=== PATIENT | female | born 1980 | race Caucasian/White ===

== ENCOUNTER 2020-09-18 15:43 | Emergency (ER) | payer MEDICARE, MEDICAID ==
[2020-09-18 16:17] VITALS: BP 127/88; PULSE 102
[2020-09-18] MEDS ORDERED: Lidocaine 1% 10 ML MDV INJECT ONE (16:27)
--- NOTE | 2020-09-18 17:17 | EDM.PDOC ---
ED HPI GENERAL MEDICAL PROBLEM - General Chief Complaint: Laceration Stated Complaint: RT HAND POINTER FINGER LAC Time Seen by Provider: 09/18/20 16:07 Source of Information: Reports: Patient, RN Notes Reviewed History Limitations: Reports: No Limitations - History of Present Illness INITIAL COMMENTS - FREE TEXT/NARRATIVE: Patient is a 40-year-old female presenting to the emergency department with complaints of laceration to her right index finger. States she was opening a can and cut the tip of her finger with a lid. Last tetanus vaccination was approximately 3 years ago. Treatments REFRIGERATION LEAD: Reports: Other (see below) Other Treatments REFRIGERATION LEAD: pressure to tip Right Finger-Index Pain Score (Numeric/FACES): 3 - Related Data Allergies Allergy/AdvReac Type Severity Reaction Status Date / Time Penicillins Allergy Severe Anaphylactic Verified 09/18/20 16:10 Shock Home Meds: Home Meds Cyclobenzaprine [Flexeril] 5 mg PO TID 11/09/15 [History] FLUoxetine HCl [Fluoxetine] 40 mg PO DAILY 11/09/15 [History] Pramipexole [Mirapex] 0.125 mg PO BEDTIME 11/09/15 [History] medroxyPROGESTERone Acetate [Depo-Provera] 150 mg IM ASDIRECTED 12/05/15 [History] glipiZIDE [Glucotrol XL] 5 mg PO DAILY 09/18/20 [History] Past Medical History Gastrointestinal History: Reports: Cholelithiasis [employer] History: Reports: Dysfunctional Uterine Bleeding Musculoskeletal History: Reports: Back Pain, Chronic, Other (See Below) Other Musculoskeletal History: restless legs, hip spasms Psychiatric History: Reports: Depression Endocrine/Metabolic History: Reports: Obesity/BMI 30+ - Infectious Disease History Infectious Disease History: Reports: None - Past Surgical History HEENT Surgical History: Reports: Adenoidectomy, Tonsillectomy GI Surgical History: Reports: Cholecystectomy Female Surgical History: Reports: D&C, Hysterectomy, Other (See Below) Other Female Surgeries/Procedures: cervical biopsy Social & Family History - Family History Family Medical History: No Pertinent Family History - Tobacco Use Tobacco Use Status *Q: Never Tobacco User - Caffeine Use Caffeine Use: Reports: Soda - Recreational Drug Use Recreational Drug Use: No ED ROS GENERAL - Review of Systems Review Of Systems: Comprehensive ROS is negative, except as noted in HPI. ED EXAM, SKIN/RASH Exam: See Below Exam Limited By: No Limitations General Appearance: Alert, WD/WN, No Apparent Distress Respiratory/Chest: No Respiratory Distress, Lungs Clear, Normal Breath Sounds, No Accessory Muscle Use, Chest Non-Tender Cardiovascular: Normal Peripheral Pulses, Regular Rate, Rhythm, No Edema, No Gallop, No JVD, No Murmur, No Rub Extremities: Other (1.5 cm slightly gaping laceration to the tip of the right index finger. Small amount of active bleeding. No nail involvement.) Neurological: Alert, Oriented, CN II-XII Intact, Normal Cognition, Normal Gait, Normal Reflexes, No Motor/Sensory Deficits Psychiatric: Normal Affect, Normal Mood ED SKIN PROCEDURES - Laceration/Wound Repair Right Distal Digit - 2nd (Index) Appearance: Subcutaneous, Clean Anesthetic Type: Local Local Anesthesia - Lidocaine (Xylocaine): 1% Plain Local Anesthetic Volume: 1cc Skin Prep: Providone-Iodine (Betadine), Saline, Sterile Drape Exploration/Debridement/Repair: Wound Explored, In a Bloodless Field, No Foreign Material Found Closed with: Sutures Lac/Wound length In cm: 1.5 Suture Size: 4-0 # of Sutures: 4 Suture Type: Nylon Sterile Dressing Applied: Nurse Tetanus Status Addressed: Yes Complications: No Course - Vital Signs Last Recorded V/S: Last Vital Signs Temp 98.3 F 09/18/20 16:15 Pulse 102 H 09/18/20 16:15 Resp 20 09/18/20 16:15 BP 127/88 09/18/20 16:15 Pulse Ox 97 09/18/20 16:15 - Orders/Labs/Meds Meds: Medications Discontinued Medications Generic Name Dose Route Start Last Admin Trade Name Bernice PRN Reason Stop Dose Admin Lidocaine HCl 10 ml 09/18/20 16:27 09/18/20 16:38 Lidocaine 1% 10 Ml Mdv INJECT 09/18/20 16:28 10 ml ONETIME ONE Administration Departure - Departure Time of Disposition: 17:15 Disposition: Home, Self-Care 01 Condition: Good Clinical Impression: Laceration - Discharge Information *PRESCRIPTION DRUG MONITORING PROGRAM REVIEWED*: No *COPY OF PRESCRIPTION DRUG MONITORING REPORT IN PATIENT FRANCK: No Instructions: Laceration Care, Adult Referrals: Jessica Sarabia MD [Primary Care Provider] - Additional Instructions: You were seen in the emergency department today for a laceration to your right index finger. The wound was cleansed and closed with 4 sutures. These should stay intact for 7 days. After that time they may be removed in the clinic by a nurse. Keep the wound clean and dry. Wash with normal soap and water twice daily. Do not submerge the wound in water. Watch for signs of infection including increased redness, swelling, or purulent drainage. If these should occur, you should be seen either in the clinic or in the emergency department as antibiotic treatment may be needed. Return to the ER as needed. Sepsis Event Note (ED) - Evaluation Sepsis Screening Result: No Definite Risk - Focused Exam Vital Signs: Vital Signs Temp Pulse Resp BP Pulse Ox 09/18/20 16:15 98.3 F 102 H 20 127/88 97
== END 2020-09-18 17:26 | disposition home or self-care (01) ==
LOC: JD.ED 15:43
DX: S61.210A Laceration without foreign body of right index finger without damage to nail, initial encounter (principal); E66.9 Obesity, unspecified; Z68.43 Body mass index [BMI] 50.0-59.9, adult; Z88.0 Allergy status to penicillin; W26.8XXA Contact with other sharp object(s), not elsewhere classified, initial encounter
CPT/HCPCS: 12001; 99282; 99282-25